=== PATIENT | female | born 1990 ===

== ENCOUNTER → 2017-12-09 | Emergency (ER) | payer OTHER ==
[~2017-12-09] VITALS: Ht 167.6 cm; Wt 90.7 kg
[~2017-12-09] MED LIST: DUI500 PO; PRENATAL + DHA1 EAC1
== END | disposition home or self-care (01) ==
LOC: ER 10:21
DX: N39.0 Urinary tract infection, site not specified (principal)

== ENCOUNTER 2018-05-04 14:30 | Inpatient (IN) | payer OTHER ==
[~2018-05-04] VITALS: Ht 167.6 cm; Wt 220.0 kg
== END 2018-05-20 13:35 | disposition home or self-care (01) | DRG 767 ==
LOC: LDR 05-17 20:10 → OB/GYN 05-17 20:10
PROC: 10E0XZZ Delivery of Products of Conception, External Approach (ICD-10-PCS; principal; 2018-05-17)
PROC: 10907ZC Drainage of Amniotic Fluid, Therapeutic from Products of Conception, Via Natural or Artificial Opening (ICD-10-PCS; 2018-05-17)
PROC: 4A033R1 Measurement of Arterial Saturation, Peripheral, Percutaneous Approach (ICD-10-PCS; 2018-05-17)
PROC: 4A1HXCZ Monitoring of Products of Conception, Cardiac Rate, External Approach (ICD-10-PCS; 2018-05-17)
PROC: 0UL70ZZ Occlusion of Bilateral Fallopian Tubes, Open Approach (ICD-10-PCS; 2018-05-19)
PROC: B246ZZZ Ultrasonography of Right and Left Heart (ICD-10-PCS; 2018-05-19)
DX: O69.81X0 Labor and delivery complicated by cord around neck, without compression, not applicable or unspecified (principal); I97.89 Other postprocedural complications and disorders of the circulatory system, not elsewhere classified; O99.824 Streptococcus B carrier state complicating childbirth; Z3A.39 39 weeks gestation of pregnancy; Z37.0 Single live birth; Z30.2 Encounter for sterilization; I49.3 Ventricular premature depolarization

== ENCOUNTER 2021-05-06 09:11 | Emergency (ER) | payer OTHER ==
[~2021-05-06] VITALS: Ht 167.6 cm; Wt 95.3 kg
== END 2021-05-06 18:20 | disposition home or self-care (01) ==
LOC: ER 09:11
DX: R55 Syncope and collapse (principal); I49.3 Ventricular premature depolarization

== ENCOUNTER 2021-05-11 12:22 | Emergency (ER) | payer OTHER ==
[~2021-05-11] VITALS: Ht 167.6 cm; Wt 95.3 kg
[2021-05-11] MEDS ORDERED: MACROBID 100 M100 MG PO (17:51)
== END 2021-05-11 17:57 | disposition home or self-care (01) ==
LOC: ER 12:22
DX: R00.2 Palpitations (principal); N39.0 Urinary tract infection, site not specified

== ENCOUNTER 2023-05-20 12:30 | Inpatient (IN) | payer OTHER ==
[~2023-05-20] VITALS: Ht 167.6 cm; Wt 111.6 kg
[~2023-05-20 12:30] MED LIST changes: +MACROBID 100 M100 MG PO
[2023-05-20] MEDS ORDERED: TOPROL XL25 M1 PO (14:29)
[2023-05-20] MEDS ORDERED: FLECAINIDE ACET50 MG PO (14:29)
[2023-05-20] MEDS ORDERED: XARELTO20 MG PO (14:29)
[2023-05-25] MEDS ORDERED: BUPROPION XL150 MG (11:27)
[2023-05-25] MEDS ORDERED: METOPROLOL SUCC25 MG (11:27)
[2023-05-25] MEDS ORDERED: CLONAZEPAM0.5 MG (11:27)
[2023-05-25] MEDS ORDERED: SERTRALINE HCL50 MG (11:27)
== END 2023-05-27 13:19 | disposition home or self-care (01) | DRG 743 ==
LOC: OB/GYN 05-25 07:31 → O/R 05-25 07:31 → SURH 05-25 11:30 → OB/GYN 05-25 16:31
PROVIDERS: ADMIT Obstetrics & Gynecology; ATTEND Obstetrics & Gynecology
PROC: 0UT94ZZ Resection of Uterus, Percutaneous Endoscopic Approach (ICD-10-PCS; principal; 2023-05-25 11:30)
DX: N92.1 Excessive and frequent menstruation with irregular cycle (principal); Z20.822 Contact with and (suspected) exposure to COVID-19